=== PATIENT | female | born 1990 | race Caucasian/White ===

== ENCOUNTER → 2018-03-03 | Emergency (ER) | payer OTHER ==
[2018-03-03 01:41] VITALS: BP 104/64; PULSE 80; TEMP 99; BMI 22.6
--- NOTE | 2018-03-03 01:50 | PDOC ---
Attending Attestation - Resident Resident Name: Laura Hintno - ED Attending Attestation I have performed the following: I have examined & evaluated the patient, The case was reviewed & discussed with the resident, I agree w/resident's findings & plan, Exceptions are as noted - HPI HPI: 03/03/18 01:47 27y F no pmhx presents with complaint of pimple on her R jaw, that she lanced, now is more erthemadous, went to [facility] after starting clindamycin and mupuricin, and presents with worsening pain. - Physicial Exam PE: 03/03/18 07:56 unable to obtain - Medical Decision Making 03/03/18 02:33 I was in the middle of evaluating the patient, and asking the pt to open her mouth when she claime she couldnt open her mouth. then became agitated statig that we werent doing anything and stormed out of the ED. I did not have the chance t ocomplete my evaluation. pt eloped prior to my complete evaluation.
--- NOTE | 2018-03-03 02:18 | PDOC ---
History of Present Illness - General Chief Complaint: Pain Stated Complaint: PAIN Time Seen by Provider: 03/03/18 01:34 History Source: Patient Exam Limitations: No Limitations - History of Present Illness Initial Comments: 03/03/18 02:39 Patient is a 27 year old female with no significant PMHx who presents today complaining of pain and swelling on the right side of her jaw. Patient states three days ago she had a pimple in the area and last night she "popped" the pimple with her fingers with white discharge. She woke up this morning with severe tenderness, redness and pain in the area, which prompted her to visit [facility] ED. She was seen there and discharged from the ED with a prescription for Clindamycin. Patient reports the pain worsened, which prompted this hospital visit. Patient denies any discharge but reports worsening swelling and tenderness. Otherwise, patient denies any fever, nausea, vomiting, abdominal pain, chest pain, palpitations, shortness of breath, diarrhea, constipation, dizziness, loss of consciousness. PMHx: Denies PSHx: (8years ago) Social Hx: Smokes marijuana daily Denies alcohol Denies smoking Past History - Past Medical History Allergies/Adverse Reactions: Allergies Allergy/AdvReac Type Severity Reaction Status Date / Time Penicillins Allergy Verified 03/03/18 01:22 orange juice [[place] Juice] AdvReac Verified 03/03/18 01:22 Home Medications: Ambulatory Orders Albuterol 0.083% Nebulizer Antonia [Ventolin 0.083% Nebulizer Soln -] 1 neb NEB QID PRN 02/23/12 Azithromycin [Zithromax Tri-Drake (3 DAYS) -] 500 mg PO DAILY #5 tablet 05/21/13 Asthma: Yes - Suicide/Smoking/Psychosocial Hx Smoking Status: No Smoking History: Never smoked Have you smoked in the past 12 months: No Number of Cigarettes Smoked Daily: 20 Information on smoking cessation initiated: No Hx Alcohol Use: No Drug/Substance Use Hx: No Review of Systems - Review of Systems Constitutional: No: Diaphoresis, Fever, Night Sweats HEENTM: No: Nose Congestion, Throat Pain Respiratory: No: Cough, Shortness of Breath, Wheezing Cardiac (ROS): No: Chest Pain, Edema, Syncope ABD/GI: No: Constipated, Diarrhea, Nausea, Vomiting : No: Burning, Dysuria, Discharge, Frequency, Flank Pain, Hematuria Musculoskeletal: No: Back Pain, Neck Pain Integumentary: Yes: Erythema (of the jaw ) Neurological: Yes: Headache. No: Numbness, Tingling, Tremors Endocrine: No: Increased Thirst, Increased Urine *Physical Exam - Vital Signs Last Vital Signs Temp Pulse Resp BP Pulse Ox 99.0 F 80 18 104/64 99 03/03/18 01:00 03/03/18 01:00 03/03/18 01:00 03/03/18 01:00 03/03/18 01:00 - Physical Exam General Appearance: Yes: Other (Awake, alert, oriented x3 and in no acute distress ) HEENT: positive: EOMI, ARIEL, Other (Patient uncooperative when trying to assess nose and throat ) Neck: positive: Supple. negative: Decreased range of motion, Lymphadenopathy (R ), Lymphadenopathy (L) Respiratory/Chest: positive: Lungs Clear, Normal Breath Sounds. negative: Crackles, Rales, Rhonchi Cardiovascular: positive: Regular Rhythm, Regular Rate, S1, S2. negative: Edema , JVD Gastrointestinal/Abdominal: positive: Other (Soft, nontender, nondistended, normoactive bowel sounds, no rebound or guarding ) Musculoskeletal: positive: Normal Inspection. negative: CVA Tenderness, CVA Tenderness (R), CVA Tenderness (L) Extremity: positive: Normal Capillary Refill, Normal Inspection, Normal Range of Motion. negative: Swelling, Calf Tenderness Integumentary: positive: Other (Erythme and swelling of right jaw with no drainage or bleeding ) Neurologic: positive: fur plucker II-XII NML intact, Fully Oriented, Alert, Normal Mood/ Affect, Normal Response, Motor Strength 5/5 Moderate Sedation - Procedure Monitoring Vital Signs: Procedure Monitoring Vital Signs Temperature 99.0 F 03/03/18 01:00 Pulse Rate 80 03/03/18 01:00 Respiratory Rate 18 03/03/18 01:00 Blood Pressure 104/64 03/03/18 01:00 O2 Sat by Pulse Oximetry (%) 99 03/03/18 01:00 ED Treatment Course - LABORATORY CBC & Chemistry Diagram: 03/03/18 01:38 03/03/18 01:38 Medical Decision Making - Medical Decision Making 03/03/18 02:13 Patient is a 27 year old female who presented for worsening jaw pain with a diagnosis of Folliculitis at [facility] this morning. Patient returned for further evaluation. -CBC and CMP ordered -Will need to order U/S to rule out abscess 03/03/18 03:13 -Patient eloped before medical treatment and evaluation of attending *DC/Admit/Observation/Transfer Diagnosis at time of Disposition: Cellulitis and abscess of face - Discharge Dispostion Disposition: ELOPED - Referrals - Patient Instructions - Post Discharge Activity
[2018-03-03 02:33] LABS: BASO % 1.5 % (0-2.0); EOS % 2.3 % (0-4.5); HEMATOCRIT 34.1 % (32.4-45.2); HEMOGLOBIN 11.9 GM/dL (10.7-15.3); LYMPH % 29.8 % (8-40); MCH 27.9 pg (25.7-33.7); MCHC 34.9 g/dl (32.0-36.0); MEAN PLT VOLUME 8.3 fl (7.5-11.1); MONO % 8.5 % (3.8-10.2); NEUT % 57.9 % (42.8-82.8); PLATELET COUNT 236 K/MM3 (134-434); RBC 4.26 M/mm3 (3.60-5.2); RDW 13.9 % (11.6-15.6); WHITE BLOOD COUNT 10.5 K/mm3 (4.0-10.0)
[2018-03-03 03:11] LABS: ALBUMIN 3.5 g/dl (3.4-5.0); ALK PHOS 78 U/L (45-117); ANION GAP 4 MMOL/L (8-16); BILIRUBIN,TOTAL 0.6 mg/dL (0.2-1); BLOOD UREA NITROGEN 19 mg/dL (7-18); CALCIUM 8.6 mg/dL (8.5-10.1); CHLORIDE 107 mmol/L (98-107); CO2 30 mmol/L (21-32); CREATININE 0.9 mg/dL (0.55-1.3); GLUCOSE,RANDOM 76 mg/dL (74-106); POTASSIUM 4.3 mmol/L (3.5-5.1); SGOT/AST 25 U/L (15-37); SGPT/ALT 23 U/L (13-61); SODIUM 140 mmol/L (136-145); TOT PROT 6.6 g/dl (6.4-8.2)
== END | disposition left against medical advice (07) ==
LOC: JER 00:47
DX: L03.211 Cellulitis of face (principal); J45.909 Unspecified asthma, uncomplicated
CPT/HCPCS: 36415; 80053; 85025; 99281-25

== ENCOUNTER 2018-10-15 18:02 | Emergency (ER) | payer OTHER ==
[2018-10-15 18:15] VITALS: BP 101/60; PULSE 96; TEMP 98.7; BMI 19.4
[2018-10-15] MEDS ORDERED: NAPROXEN 500 MG TABLET (FP) PO ONE (18:41)
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
[2018-10-15] MEDS ORDERED: NAPROXEN 500 MG TABLET (FP) ONE (19:09)
== END 2018-10-15 19:54 | disposition home or self-care (01) ==
LOC: JERFT 18:02
DX: M79.10 Myalgia, unspecified site (principal); M25.512 Pain in left shoulder; F20.9 Schizophrenia, unspecified; F31.9 Bipolar disorder, unspecified; Z91.14 Patient's other noncompliance with medication regimen
CPT/HCPCS: 71111-TC-FY; 73030-TC-LT-FY; 84703; 99281-25